=== PATIENT | male | born 1975 | race Two or more races ===

== ENCOUNTER 2017-02-23 07:13 | Emergency (ER) | payer OTHER ==
[~2017-02-23] VITALS: Ht 175.3 cm; Wt 83.0 kg
[2017-02-23] MEDS ORDERED: OMEP20TA62 PO (07:37)
[2017-02-23] MEDS ORDERED: ASPIRIN 81 MG TABLET CHEW ONE (07:49)
[2017-02-23 07:53] LABS: HEMATOCRIT 46.4 % (39.2-51.8); WHITE BLOOD COUNT 8.6 x10^3/uL (3.4-10)
[2017-02-23] MEDS ORDERED: ASPIRIN 81 MG TABLET CHEW PO ONE (08:00)
[2017-02-23 08:06] LABS: BLOOD UREA NITROGEN 22 mg/dL (7-18)
[2017-02-23 08:11] LABS: IS PT STATUS REG ER OR PRE ER? YES
[2017-02-23 09:52] LABS: IS PT STATUS REG ER OR PRE ER? YES
[2017-02-23 10:51] VITALS: BP 130/93
== END 2017-02-23 10:54 | disposition home or self-care (01) ==
LOC: ED 08:11
DX: R07.2 Precordial pain (principal); K21.9 Gastro-esophageal reflux disease without esophagitis
CPT/HCPCS: 36415; 71010; 80048; 82040; 84484; 85025; 93005; 99285

== ENCOUNTER 2017-07-20 13:13 | Emergency (ER) | payer OTHER ==
[~2017-07-20] VITALS: Ht 177.8 cm; Wt 82.9 kg
[~2017-07-20 13:13] MED LIST: OMEP20TA62 PO
[2017-07-20 13:18] VITALS: BP 158/83
[2017-07-20] MEDS ORDERED: KETOROLAC 30 MG/1 ML ONE (13:52)
[2017-07-20] MEDS ORDERED: CYCLOBENZAPRINE 10 MG TABLET PO ONE (14:00)
[2017-07-20] MEDS ORDERED: KETOROLAC 30 MG/1 ML IM ONE (14:00)
[2017-07-20] MEDS ORDERED: CYCLOBENZAPRINE 10 MG TABLET ONE (14:01)
== END 2017-07-20 14:38 ==
LOC: ED 14:33
DX: S39.012A Strain of muscle, fascia and tendon of lower back, initial encounter (principal); W01.0XXA Fall on same level from slipping, tripping and stumbling without subsequent striking against object, initial encounter; Y93.89 Activity, other specified; Y92.89 Other specified places as the place of occurrence of the external cause; Y99.8 Other external cause status
CPT/HCPCS: 96372; 99283; J1885

== ENCOUNTER 2018-01-29 05:05 | Emergency (ER) | payer MEDICAID, OTHER ==
[~2018-01-29] VITALS: Ht 175.3 cm; Wt 81.8 kg
[2018-01-29] MEDS ORDERED: SODIUM CHLORIDE 0.9% 1,000 ML IV ONE (05:45)
[2018-01-29] MEDS ORDERED: SODIUM CHLORIDE FLUSH 10ML SYR IVF ONE (06:00)
[2018-01-29] MEDS ORDERED: ONDANSETRON 2MG/ML, 2ML IVPush ONE (06:00)
[2018-01-29] MEDS ORDERED: SODIUM CHLORIDE 0.9% 1,000ML IVBOLUS ONE (06:00)
[2018-01-29] MEDS ORDERED: ONDANSETRON 2MG/ML, 2ML ONE (06:00)
[2018-01-29 06:13] LABS: BASOPHILS # (AUTO) 0.03 x10^3/uL (0-0.1); BASOPHILS % (AUTO) 0 % (0-1); EOSINOPHILS # (AUTO) 0.19 x10^3/uL (0-0.4); EOSINOPHILS % (AUTO) 2 % (1-7); LYMPHOCYTES # (AUTO) 1.33 x10^3/uL (1-3.4); LYMPHOCYTES % (AUTO) 14 % (22-44); MD NO; MEAN CORPUSCULAR HEMOGLOBIN 30.6 pg (27.5-34.5); MEAN CORPUSCULAR HGB CONC 35.1 g/dL (33.2-36.2); MEAN CORPUSCULAR VOLUME 87.1 fL (81-97); MEAN PLATELET VOLUME 8.4 fL (7.4-10.4); MONOCYTES # (AUTO) 0.45 x10^3/uL (0.2-0.8); MONOCYTES % (AUTO) 5 % (2-9); NEUTROPHILS # (AUTO) 7.76 x10^3/uL (1.8-6.8); NEUTROPHILS % (AUTO) 80 % (42-75); PLATELET COUNT 258 x10^3/uL (130-400); RED BLOOD COUNT 5.19 x10^6/uL (4.38-5.82); RED CELL DISTRIBUTION WIDTH 12.7 % (9.4-14.8)
[2018-01-29 06:25] LABS: MICROSCOPIC NOT IND
[2018-01-29 06:26] LABS: ALANINE AMINOTRANSFERASE 27 U/L (12-78); ALBUMIN 3.8 g/dL (3.4-5.0); ANION GAP 10 mmol/L (5-15); CALCIUM 8.7 mg/dL (8.5-10.1); CHLORIDE 107 mmol/L (98-107)
[2018-01-29 06:26] LABS: CULTURE INDICATED? NO
[2018-01-29 06:28] LABS: ALKALINE PHOSPHATASE 101 U/L (45-117); BILIRUBIN,TOTAL 0.4 mg/dL (0.2-1.0); CREATININE 1.06 mg/dL (0.7-1.3)
[2018-01-29 08:27] VITALS: BP 123/74
== END 2018-01-29 08:29 | disposition home or self-care (01) ==
LOC: ED 05:24
DX: K52.9 Noninfective gastroenteritis and colitis, unspecified (principal); E86.9 Volume depletion, unspecified; K21.9 Gastro-esophageal reflux disease without esophagitis; F32.9 Major depressive disorder, single episode, unspecified; F41.1 Generalized anxiety disorder
CPT/HCPCS: 36415; 80053; 81003; 83690; 85025; 96361; 96374; 99284; J2405; J7030

== ENCOUNTER → 2018-07-06 | Emergency (ER) | payer MEDICAID ==
[~2018-07-06] VITALS: Ht 177.8 cm; Wt 81.2 kg
[2018-07-06 19:16] VITALS: BP 147/94
== END ==
LOC: ED 19:37
DX: H00.014 Hordeolum externum left upper eyelid (principal)
CPT/HCPCS: 99283

== ENCOUNTER 2019-04-12 21:58 | Emergency (ER) | payer MEDICAID ==
[~2019-04-12] VITALS: Ht 177.8 cm; Wt 79.8 kg
[2019-04-12] MEDS ORDERED: IBUPROFEN 600 MG TABLET ONE (22:33)
--- NOTE | 2019-04-12 22:42 | NUR ---
Patient into room with significant other. Patient is alert, oriented and answers questions clearly and concisely. Patient transferred self into [facility]. Provider already at bedside, assessment complete. Patient resting comfortably, no accessory muscle use, but does report some aches and has an infrequent dry cough. Flu swab taken by provider. Patient administered antipyretic and educated on fever control methods. Patient and spouse verbalized understanding. Awaiting flu swab results and temperature recheck after ibuprofen has had at least 30 minutes to take effect.
[2019-04-12] MEDS ORDERED: IBUPROFEN 600 MG TABLET PO ONE (23:00)
[2019-04-12 23:07] LABS: RAPID INFLUENZA A Negative (Negative); RAPID INFLUENZA B Negative (Negative)
[2019-04-12 23:16] VITALS: BP 130/80
== END 2019-04-12 23:52 | disposition home or self-care (01) ==
LOC: ED 23:20
DX: B34.9 Viral infection, unspecified (principal); K21.9 Gastro-esophageal reflux disease without esophagitis; E78.5 Hyperlipidemia, unspecified
CPT/HCPCS: 87400; 99283